=== PATIENT | female | born 1970 | race Caucasian/White ===

== ENCOUNTER 2019-05-17 10:42 | Emergency (ER) | payer BC, OTHER ==
--- OUTSIDE RECORDS SUMMARY | 2019-05-17 10:48 | XMS REPORT | Continuity of Care Document ---
:1970 External Reference #:[id number] Author Name Eladio Barrios MD (transmitted by agent of provider Shanna Starr) Address [address] [facility] [facility], [facility] [address] Care Team Providers Name Role Phone Nneka Villarreal MD - Family Care Team Information Button Buttonhole Marker [phone] Medicine Problems Active Problems Provider Date Strain of rotator cuff capsule Eladio Barrios MD Onset: 04/19/2019 Social History Type Date Description Comments Sex Unknown ETOH Use Occasionally consumes alcohol Tobacco Use Start: Unknown Patient has never smoked Smoking Status Reviewed: 05/01/19 Patient has never smoked Exercise Type/Frequency Exercises regularly Allergies, Adverse Reactions, Alerts Description No Known Drug Allergies Medications Active Medications SIG Qnty Indications Ordering Date Provider Hydrochlorothiazide Take 1 Tablet Unknown 12.5mg Tablets By Mouth Every Day Ranitidine HCL Take 1 Tablet Unknown 150mg Tablets By Mouth Two Times Daily History Medications Valium take 1-2 tabs 30 2tabs Eladio Barrios MD 04/24/2019 - 5mg Tablets min prior to mri 04/30/2019 Immunizations Description No Information Available Vital Signs Date Vital Result Comment 05/01/2019 8:40am Height 63 inches 5'3" Weight 210.00 lb stated Heart Rate 68 /min BP Systolic 126 mmHg BP Diastolic 72 mmHg Respiratory Rate 12 /min Pain Level 2 BMI (Body Mass Index) 37.2 kg/m2 04/19/2019 8:20am Height 63 inches 5'3" Weight 215.00 lb Heart Rate 60 /min BP Systolic 112 mmHg BP Diastolic 78 mmHg Pain Level 6 BMI (Body Mass Index) 38.1 kg/m2 Results Description No Information Available Procedures Description No Information Available Medical Devices Description No Information Available Encounters Description No Information Available Assessments Date Code Description Provider 05/01/2019 S46.011A Strain of muscle(s) and tendon(s) of the rotator Eladio Barrios MD cuff of right shoulder, initial encounter 04/19/2019 S46.011A Strain of muscle(s) and tendon(s) of the rotator Eladio Barrios MD cuff of right shoulder, initial encounter Plan of Treatment Future Appointment(s):06/19/2019 8:15 am - Eladio Barrios MD at [facility] [place]0305/01/2019 - Eladio Barrios, MDS46.011A Strain of muscle(s) and tendon(s) of the rotator cuff of right shoulder, initial encounterFollow up: Follow up: 1014 days post op Functional Status Description No Information Available Mental Status Description No Information Available Referrals Description No Information Available
[2019-05-17 10:59] VITALS: BP 150/91
[2019-05-17] MEDS ORDERED: hydrOXYzine HCL TAB* 25 MG PO ONE (11:35)
--- NOTE | 2019-05-17 12:11 | UC ---
Allergic Reaction HPI - HPI Summary HPI Summary: The patient is a 48-year-old female who presents here with swelling and pruritus in the area of a cortisone shot that she obtained in the right shoulder 2 days ago. Her symptoms started this a.m. and have since spread to her neck and face. The pruritus is mild to moderate. She states her eyelid seems swollen. She denies any chest pain or shortness of breath. She has never had an allergic reaction to medications in the past. She has taken no medicines for this. - History of Current Complaint Chief Complaint: UCAllergicReaction Stated Complaint: ALLERGIC REACTION Time Seen by Provider: 05/17/19 11:27 Hx Obtained From: Patient Hx Last Menstrual Period: 12/31/15 Onset/Duration: Gradual Onset, Lasting Hours Severity Initially: Mild Severity Currently: Moderate Pain Intensity: 0 Pain Scale Used: 0-10 Numeric Location: Discrete @ Character: Swelling, Pruritus Aggravating Factor(s): Nothing Alleviating Factor(s): Nothing Associated Signs And Symptoms: Negative: Abdominal Pain, Chest Pain, Cough Wheezing, Diaphoresis, Difficulty Breathing, Hoarseness, Lightheadedness, Nausea , Rash, Syncope, Throat Tightening, Vomiting - Related Hx Possible Reaction To: Medications - Allergies/Home Medications Allergies/Adverse Reactions: Allergies Allergy/AdvReac Type Severity Reaction Status Date / Time Peanuts Allergy Headache Uncoded 05/17/19 10:59 Home Medications: Home Medications Hydrochlorothiazide TAB* [Hydrodiuril TAB*] 12.5 mg PO DAILY 05/17/19 [History Confirmed 05/17/19] raNITIdine HCl [Ranitidine HCl] 150 mg PO DAILY 05/17/19 [History Confirmed ] PMH/Surg Hx/FS Hx/Imm Hx Previously Healthy: Yes - Surgical History Surgical History: Yes Surgery Procedure, Year, and Place: appendectomy, bilateral eye surgery for lazy EYE - Family History Known Family History: Positive: Hypertension - Social History Alcohol Use: Occasionally Substance Use Type: None Smoking Status (MU): Never Smoked Tobacco Review of Systems All Other Systems Reviewed And Are Negative: Yes Constitutional: Positive: Negative Skin: Positive: Other - pruritis right shoulder/neck and face Eyes: Positive: Negative ENT: Positive: Negative Respiratory: Positive: Negative Cardiovascular: Positive: Negative Gastrointestinal: Positive: Negative Genitourinary: Positive: Negative Motor: Positive: Negative Neurovascular: Positive: Negative Musculoskeletal: Positive: Arthralgia - right shoulder tendonitis Neurological: Positive: Negative Psychological: Positive: Negative Physical Exam Triage Information Reviewed: Yes Appearance: Well-Appearing, No Pain Distress, Well-Nourished Vital Signs: Initial Vital Signs Temp 97.1 F 05/17/19 10:54 Pulse 62 05/17/19 10:54 Resp 20 05/17/19 10:54 BP 150/91 05/17/19 10:54 Pulse Ox 100 05/17/19 10:54 Vital Signs Reviewed: Yes Eyes: Positive: Conjunctiva Clear ENT: Positive: Hearing grossly normal, TMs normal, Uvula midline, Other - no stridor. Negative: Nasal congestion, Nasal drainage, Tonsillar swelling, Tonsillar exudate, Trismus, Muffled voice, Hoarse voice Dental Exam: Normal Neck: Positive: Supple, Nontender, No Lymphadenopathy Respiratory: Positive: Lungs clear, Normal breath sounds, No respiratory distress, No accessory muscle use Cardiovascular: Positive: RRR, No Murmur Musculoskeletal: Positive: No Edema, ROM Limited @ - right shoulder, Other: - slight induration right shoulder Neurological: Positive: Alert Psychological Exam: Normal Skin Exam: Normal Re-Evaluation - Re-Evaluation First Eval Re-Evaluation Time: 12:24 Change: Improved - itching gone/no rash/no angioedema Allergic Reaction Course/Dx - Differential Dx/Diagnosis Provider Diagnosis: Allergic reaction caused by a drug Discharge ED - Sign-Out/Discharge Documenting (check all that apply): Patient Departure All imaging exams completed and their final reports reviewed: No Studies - Discharge Plan Condition: Stable Disposition: HOME Prescriptions: hydrOXYzine HCL TAB* [Atarax TAB*] 25 - 50 mg PO QID PRN #10 tab PRN Reason: Itching Forms: *Work Release Referrals: Nneka Villarreal MD [Primary Care Provider] - 4 Days (if not completely better ) Additional Instructions: I suspect you are allergic to the steroid injection you received two days ago Take 1-2 atarax up to 4x day as needed for itching Heat may make symptoms worse recheck for new or worsening symptoms or if not better in 48 hours recheck for new or worsening symptoms - Billing Disposition and Condition Condition: STABLE Disposition: Home
== END 2019-05-17 12:35 | disposition home or self-care (01) ==
LOC: UCEAST 10:42
DX: L29.9 Pruritus, unspecified (principal); M79.89 Other specified soft tissue disorders; T38.0X5A Adverse effect of glucocorticoids and synthetic analogues, initial encounter; M75.91 Shoulder lesion, unspecified, right shoulder; Z91.010 Allergy to peanuts; Y92.9 Unspecified place or not applicable
CPT/HCPCS: 99212; A9270-GY; G0463